=== PATIENT | male | born 1955 | race Caucasian/White ===

== ENCOUNTER → 2022-09-16 09:06 | Outpatient (CLI) | payer MEDICARE, MEDICAID, SELFPAY ==
--- NOTE | ~2022-09-16 | XR_ITS ---
AP and lateral views of the bilateral hips Clinical history: Pain Findings: No acute fracture or dislocation is seen. Osseous alignment is anatomic. Bilateral hip and SI joint spaces are preserved. Soft tissues are unremarkable. Impression: No significant abnormality is seen. Reviewed, dictated and finalized at location . Impression: No significant abnormality is seen.
--- NOTE | ~2022-09-16 | XR_ITS ---
EXAMINATION: XR lumbar spine min 4V DATE: 09/16/2022 09:37 INDICATION: Low back pain, unspecified. TECHNIQUE: 5 views of lumbar spine were obtained. COMPARISON: None. FINDINGS: Bone alignment is normal. There is mild chronic anterior wedging of T10 and T11 vertebral b odies. There is moderately decreased disc height at L4-L5 and L5-S1. There are bridging endplate oste ophytes at multiple levels from the thoracic spine to L1, consistent with diffuse idiopathic skeletal hyperostosis (DISH). There is severe facet joint osteoarthritis in lower lumbar spine. IMPRESSION: 1. Moderate lower lumbar spondylosis. 2. DISH. Reviewed, dictated and finalized at location A.
== END ==
PROVIDERS: PCP Family Medicine; Visit Provider Nurse Practitioner Family
DX: M25.551 Pain in right hip (principal); M54.50 Low back pain, unspecified; M47.816 Spondylosis without myelopathy or radiculopathy, lumbar region; M48.16 Ankylosing hyperostosis [Forestier], lumbar region
CPT/HCPCS: 72110; 73521

== ENCOUNTER 2024-02-22 14:01 | Emergency (ER) | payer MEDICARE, MEDICAID, SELFPAY ==
--- NOTE | ~2024-02-22 | XR_ITS ---
EXAMINATION: XR knee RT min 4V DATE: 02/22/2024 14:43 INDICATION: Right knee pain TECHNIQUE: Anteroposterior, 2 oblique and crosstable lateral views of the right knee were obtained COMPARISON: None. FINDINGS: Alignment is normal. No fracture. Joint spaces appear normal on nonweightbearing imaging with no ero sions or osteophytosis. Small enthesophyte at the patellar insertion of the distal quadriceps tendon. No joint effusion. Soft tissues are unremarkable. IMPRESSION: 1. Small enthesophytes at the distal quadriceps tendon. Otherwise unremarkable right knee radiographs . Reviewed, dictated and finalized at location B. IMPRESSION: 1. Small enthesophytes at the distal quadriceps tendon. Otherwise unremarkable right knee radiographs.
[2024-02-22 14:16] VITALS: BP 142/72; PULSE 118; RESP 18; TEMP 36.3; O2SAT 97
--- NOTE | 2024-02-22 14:21 | ED.EXTPRO ---
HPI - Extremity Problem General Chief complaint: Extremity Problem,Nontraumatic Stated complaint: RT Knee Pain Time Seen by Provider: 02/22/24 14:21 Source: patient, RN notes reviewed and old records reviewed Mode of arrival: ambulatory Limitations: no limitations History of Present Illness HPI Narrative: patient presents with complaints of right knee pain for approximately 2 months. He denies any a right injury or trauma. He reports that pain is worse after he has been engaging in any activity, including walking. He reports that symptoms subside with rest. He has not been taking any medication for his symptoms. Elevated pulse rate is noted, patient reports that this is his average pulse. He is not in any distress. Denies any chest pain or shortness of breath Related Data Home Medications Medication Instructions Recorded Confirmed mecobalamin (vitamin B12) 1,000 1,000 mcg PO BID 03/15/22 09/28/23 mcg chewable tablet Allergies Allergy/AdvReac Type Severity Reaction Status Date / Time No Known Allergies Allergy Verified 02/22/24 14:24 Review of Systems Review of Systems: All systems reviewed & are unremarkable except as noted in HPI and below Constitutional: Constitutional: Reports no additional constitutional complaints ENT: Reports system reviewed and no additional complaints, except as documented Cardiovascular: Cardiovascular: Reports no additional cardiovascular complaints Respiratory: Respiratory: Reports no additional respiratory complaints Gastrointestinal: Gastrointestinal: Reports no additional gastrointestinal complaints Musculoskeletal: Musculoskeletal: Reports no additional musculoskeletal complaints, Reports as per HPI and Reports arthralgias PMFSH Past Medical History Medical History Acquired hammer toe deformity of lesser toe of both feet B12 deficiency Bilateral hip pain BMI 38.0-38.9,adult BMI 39.0-39.9,adult BMI 39.0-39.9,adult BPH (benign prostatic hyperplasia) Diabetes DM type 2 with diabetic peripheral neuropathy Elevated TSH Family history of Alzheimer's disease H/O pyloric stenosis Hyperlipidemia Hyperlipidemia Hypertension intermediate (current) use of oral hypoglycemic drugs Low back pain Memory changes Nail fungus mycotic changes of all the toenails of both feet Neuropathy Nonproliferative diabetic retinopathy of both eyes (~08/10/21) exam 08/22/22 Obesity (BMI 30-39.9) Prostate cancer Rash and other nonspecific skin eruption Smokeless tobacco use Family History Family History Mother Hypertension Grandparent Hypertension Social History Social History Smoking status: Never smoker Tobacco type: smokeless tobacco Smokeless tobacco user: chewing tobacco Alcohol intake: current Alcohol use details: rarely Substance use: never Substance use type: does not use Lack of Transportation: No Lack of Food: Never True Current Housing: I Have Housing Concerned About Future Housing: No Difficulty Paying Gas/Electric Bills: No Difficulty Paying for Meds: No Currently Unemployed: No Education: High School Diploma/GED Difficulty w/ Childcare or Family Care: No Comments At the time of my signature, I reviewed and agree with the nursing past medical, surgical, social, and family history. There is no relevant family history pertinent to the patient complaint. Exam Const: General: cooperative, no acute distress, alert and awake Orientation/consciousness: oriented to person, oriented to place and oriented to time HENMT: Head: normal to inspection Resp: Effort & Inspection: normal respiratory effort and able to speak in complete sentences Auscultation: clear to auscultation bilaterally, no crackles, no rales, no rhonchi and no wheezes Cardio: Palpation: normal PMI Rate: regular rate and tachycardic Rhythm: regular rhythm He
[2024-02-22 14:26] VITALS: BP 142/72; PULSE 118; RESP 18; TEMP 36.3; O2SAT 97
== END 2024-02-22 15:03 | disposition home or self-care (01) ==
PROVIDERS: Emergency Provider Nurse Practitioner Family; PCP Family Medicine
DX: M25.561 Pain in right knee (principal); F17.220 Nicotine dependence, chewing tobacco, uncomplicated; N40.0 Benign prostatic hyperplasia without lower urinary tract symptoms; E11.42 Type 2 diabetes mellitus with diabetic polyneuropathy; E11.3293 Type 2 diabetes mellitus with mild nonproliferative diabetic retinopathy without macular edema, bilateral; E78.5 Hyperlipidemia, unspecified; I10 Essential (primary) hypertension; E66.9 Obesity, unspecified; Z68.37 Body mass index [BMI] 37.0-37.9, adult; Z85.46 Personal history of malignant neoplasm of prostate
CPT/HCPCS: 73564; 99213; G0463

== ENCOUNTER 2024-05-10 08:56 | Outpatient (CLI) | payer MEDICARE, SELFPAY ==
--- NOTE | 2024-05-10 08:59 | EST_ITS ---
Patient Info Name: Alonso Zuniga Age: 69 years : 1955 Gender: Male Ht: 69 in Wt: 255 lbs BSA: 2.42 m2 Exam Date: 05/10/2024 9:15 AM Exam Location: [facility] Patient Status: Outpatient Admit Date: 05/10/2024 Staff Ordering Physician: Shana Mireles NP Attending Provider: Shana Mireles NP Exercise Technologist: Promise Mcarthur RDCS Exercise Physician: Pedro Goodwin DO Exam Type: CA stress test treadmill Study Info A treadmill exercise stress test was performed. Summary 1. 1. Negative Alexandre exercise stress test for ischemic ST changes by ECG criteria. 2. 2. Reduced functional capacity, achieving 4.7 METs of workload. 3. 3. Baseline hypertension. 4. 4. Appropriate HR response to exercise. 5. 5. Appropriate HR recovery at 1 minute post exercise. 6. 6. No imaging with stress testing. 7. 7. Patient informed of the above results. Protocol: Alexandre Stress ECG Details Stage: REST Duration (min): 0 min : 57 sec Speed (mph): 0.0 Grade (%): 0 HR (bpm): 61 SBP (mmHg): 146 DBP (mmHg): 82 METS: --- Stage: REST Duration (min): 3 min : 58 sec Speed (mph): 0.0 Grade (%): 0 HR (bpm): 60 SBP (mmHg): 146 DBP (mmHg): 82 METS: --- Stage: STAGE 1 Duration (min): 1 min : 0 sec Speed (mph): 1.7 Grade (%): 10 HR (bpm): 84 SBP (mmHg): 146 DBP (mmHg): 82 METS: --- Stage: STAGE 1 Duration (min): 2 min : 0 sec Speed (mph): 1.7 Grade (%): 10 HR (bpm): 109 SBP (mmHg): 146 DBP (mmHg): 82 METS: --- Stage: STAGE 1 Duration (min): 3 min : 0 sec Speed (mph): 1.7 Grade (%): 10 HR (bpm): 120 SBP (mmHg): 146 DBP (mmHg): 82 METS: --- Stage: STAGE 2 Duration (min): 0 min : 7 sec Speed (mph): 2.5 Grade (%): 12 HR (bpm): 121 SBP (mmHg): 146 DBP (mmHg): 82 METS: --- Stage: RECOVERY Duration (min): 0 min : 52 sec Speed (mph): 0.0 Grade (%): 0 HR (bpm): 112 SBP (mmHg): 188 DBP (mmHg): 63 METS: --- Stage: RECOVERY Duration (min): 1 min : 52 sec Speed (mph): 0.0 Grade (%): 0 HR (bpm): 105 SBP (mmHg): 188 DBP (mmHg): 63 METS: --- Stage: RECOVERY Duration (min): 2 min : 52 sec Speed (mph): 0.0 Grade (%): 0 HR (bpm): 97 SBP (mmHg): 187 DBP (mmHg): 78 METS: --- Stage: RECOVERY Duration (min): 3 min : 52 sec Speed (mph): 0.0 Grade (%): 0 HR (bpm): 92 SBP (mmHg): 187 DBP (mmHg): 78 METS: --- Stage: RECOVERY Duration (min): 4 min : 52 sec Speed (mph): 0.0 Grade (%): 0 HR (bpm): 88 SBP (mmHg): 200 DBP (mmHg): 80 METS: --- Stage: RECOVERY Duration (min): 5 min : 52 sec Speed (mph): 0.0 Grade (%): 0 HR (bpm): 80 SBP (mmHg): 200 DBP (mmHg): 80 METS: --- Stage: RECOVERY Duration (min): 6 min : 52 sec Speed (mph): 0.0 Grade (%): 0 HR (bpm): 78 SBP (mmHg): 188 DBP (mmHg): 80 METS: --- Stage: RECOVERY Duration (min): 7 min : 52 sec Speed (mph): 0.0 Grade (%): 0 HR (bpm): 76 SBP (mmHg): 188 DBP (mmHg): 80 METS: --- Stage: RECOVERY Duration (min): 8 min : 52 sec Speed (mph): 0.0 Grade (%): 0 HR (bpm): 74 SBP (mmHg): 188 DBP (mmHg): 80 METS: --- Stage: RECOVERY Duration (min): 9 min : 52 sec Speed (mph): 0.0 Grade (%): 0 HR (bpm): 70 SBP (mmHg): 177 DBP (mmHg): 76 METS: --- Stage: RECOVERY Duration (min): 10 min : 52 sec Speed (mph): 0.0 Grade (%): 0 HR (bpm): 68 SBP (mmHg): 165 DBP (mmHg): 76 METS: --- Stage: RECOVERY Duration (min): 10 min : 57 sec Speed (mph): 0.0 Grade (%): 0 HR (bpm): 68 SBP (mmHg): 165 DBP (mmHg): 76 METS: --- Rest HR: 60 bpm Peak HR: 144 bpm Rest Sys BP: 146 mmHg Peak Sys BP: 200 mmHg Max Pred HR: 150 bpm % Max Pred HR: 96 % Target HR: 128 bpm Max RPP: 28,800 bpm*mmHg Roman Score: -12 Termination Reason: Reached target heart rate or workload Cardiac Symptoms: Shortness of breath Max ST Seg Deviation: -3.10 mm Total Time: 3 min : 7 sec Rest Corbett BP: 82 mmHg Peak Corbett BP: 80 mmHg Angina Score: None Total METS: 4.7 Resting ECG Sinus rhythm. Stress ECG No ST changes. Arrhythmias None. Report Signatures
--- NOTE | 2024-05-10 09:00 | ECG_ITS ---
Test Date: 2024-05-10 09:46:45 Measurements Intervals [place] Rate: 69 P: -87 TN: 128 QRS: -17 QRSD: 104 T: 53 QT: 387 QTc: 417 Interpretive Statements ECTOPIC ATRIAL RHYTHM LOW QRS VOLTAGE IN PRECORDIAL LEADS [QRS DEFLECTION < 1.0 mV IN CHEST LEADS] ANTEROSEPTAL MYOCARDIAL INFARCTION , OF INDETERMINATE AGE [40+ ms Q WAVE IN V1-V4] No previous ECG available for comparison Electronically Signed On 05-10-2024 12:53:06 CNC SUPERVISOR by Cecilia Jeffries M.D.
== END 2024-05-10 08:57 | disposition home or self-care (01) ==
LOC: ANHCARD 08:57
PROVIDERS: PCP Family Medicine; Visit Provider Nurse Practitioner Family
DX: I10 Essential (primary) hypertension (principal); R06.02 Shortness of breath
CPT/HCPCS: 93005; 93017

== ENCOUNTER → 2025-04-17 13:45 | Outpatient (CLI) | payer MEDICARE, SELFPAY ==
--- NOTE | ~2025-04-17 | XR_ITS ---
EXAMINATION: XR hip RT min 2V, 04/17/2025 13:47 MUSIC LEADER HISTORY: M25.551 - Pain in right hip COMPARISON: No comparisons available. Findings: No acute fracture or malalignment. No significant degenerative changes. Soft tissues unremarkable. Impression: No acute fracture or malalignment. Reviewed, dictated and finalized at location P. C LEADER Impression: No acute fracture or malalignment.
--- OUTSIDE RECORDS SUMMARY | 2025-04-17 14:21 | XMS_ITS | Clinical Summary ---
Author Organization 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 Gender Identity Not on file Sexual Orientation Not on file Plan of Treatment Health Maintenance Due Date Last Done Comments Hepatitis C Virus (HCV) Screening 1955 TdaP Immunization 1955 Cologuard 1999 Colonoscopy 1999 Colorectal Cancer Screening 1999 Immunochemical Fecal Occult Blood 1999 Pneumococcal Immunization (5 0+ years) (1 of 1 - PCV) 2004 Zoster Immunization (1 of 2) 2004 Influenza Immunization (#1) 2025 02/26/2020 SARS-COV-2 Immunization ( season) 2025 06/09/2021, 08/10/2020 Respiratory Syncytial Virus (RSV) Immunization (Adult) (1 - 1-dose 75+ series) 2029 Hepatitis B Immunization Aged Out No longer eligible based on patient's age to complete this topic Human Papillomavirus (HPV) Immunization Aged Out No longer eligible b ased on patient's age to complete this topic Meningococcal Immunization (ACWY) Aged Out No longer eligible b ased on patient's age to complete this topic Rotavirus Immunization Aged Out No lo nger eligible based on patient's age to complete this topic
--- OUTSIDE RECORDS SUMMARY | 2025-04-17 14:21 | XMS_ITS | Clinical Summary ---
Author Organization [facility] Address [address] [place] [id number] Care Team Providers Care Customer Care Representative Name Role Phone Unavailable Primary Care Provider Unavailabl e Social History Tobacco Use Types Packs/Day Years Used Date Smoking Tobacco: Never Assessed Sex and Gender Information Value Date Recorded Sex Assigned at Not on file Legal Sex Male 11:16 PM CDT Gender Identity Not on file Sexual Orientation Not on file Last Filed Vital Signs Vital Sign Reading Time Taken Comments Blood Pressure 176/106 08/20/2009 10:50 AM CDT Pulse 84 08/20/2009 10:50 AM CDT Temperature - - Respiratory Rate - - Oxygen Saturation - - Inhaled Oxygen Concentration - - Weight 118.4 kg (261 lb) 08/20/2009 10:50 AM CDT Height 175.3 cm (5' 9) 08/20/2009 10:50 AM CDT Body Mass Index 38.54 08/20/2009 10:50 AM CDT Plan of Treatment Health Maintenance Due Date Last Done Comments Colorectal Cancer Screening Colonoscopy (10 Years) 1955 Hepatitis C 1972 DTaP, Tdap and Td Vaccines ( 1 - Tdap) 1973 Pneumococcal Vaccine: 50+ Ye ars (1 of 1 - PCV) 2004 Zoster Vaccines (1 of 2) 2004 COVID-19 Vaccine ( - 2024-2 6 season) 2025 Influenza Adult (#1) 2025 RSV Immunization or 60+ Years (1 - 1-dose 75+ series) 2029 Hepatitis A Vaccines Aged Out No long er eligible based on patient's age to complete this topic Meningococcal B Vaccine Aged Out No l onger eligible based on patient's age to complete this topic Meningococcal Vaccine Aged Out No ria julio eligible based on patient's age to complete this topic RSV Immunizations Under 20 Months Aged Out No longer eligible based on patient's age to complete this topic
--- OUTSIDE RECORDS SUMMARY | 2025-04-17 14:21 | XMS_ITS | Clinical Summary ---
Author Organization [facility] [employer] Address [address] [place] [address] Care Team Providers Care Graphic Arts Instructor Name Role Phone Shana Mireles Pamela EL-GATE TENDER Primary Care Provider Source Comments [facility] [employer],non-owned Affiliates and Associated Physician Practices is amultiple site organization consisting of ambulatory clinics and hospital sitesin [place], [place], [place] and [place]. This disclosure is being madepursuant to the Care Everywhere program and may not contain all information available regarding this patient. Last updated 18.[facility] [employer] Allergies No known active allergies Medications * This document contains information received from the source organization and may not represent a complete record from that organization. * Be aware that medications may not be up to date on this document. Alwaysverify current medications with the patient. glimepiride (AMARYL) 2 MG tablet TK 1 T PO QD 0 Active irbesartan (AVAPRO) 150 MG tablet TK 1 T PO QD 0 Active metFORMIN (GLUCOPHAGE) 850 MG tablet TK 1 T PO BID WITH THE MORNING AND STEVEN MEAL 0 Active simvastatin (ZOCOR) 40 MG tablet Take 1 (one) tablet by mouth once daily 2 Active oxyBUTYnin CR 24hr (Ditropan-XL) 10 MG tablet TAKE 1 TABLET BY MOUTH EVERY DAY 90 tablet 4 3 Active DULoxetine (Cymbalta) 60 MG capsule Take 1 (one) capsule by mouth once daily 4 Active Cyanocobalamin (B-12) 1000 MCG TABS Take 1 tablet by mouth 2 times daily Active gabapentin (Neurontin) 300 MG capsule Take 1 (one) capsule by mouth 2 times daily Active diclofenac sodium (Voltaren) 1 % gel Apply 2 (two) g to affected area 4 times daily Active B Hfbbkjq-S-Sxlsn Acid (vitamin B complex with C) Take 1 (one) tablet by mouth once daily Active dapagliflozin propanediol (Farxiga) 5 MG tablet Take 1 (one) tablet by mouth every morning Active Immunizations Immunization Administration Dates Next Due INFLUENZA VACCINE 02/26/2020 Social History Tobacco Use Types Packs/Day Years Used Date Smoking Tobacco: Former Smokeless Tobacco: Current Chew Tobacco Cessation:Ready to Q uit: Not Asked; Counseling Given: Not Answered Alcohol Use Standard Drinks/Week Comments Yes 0 (1 standard drink = 0.6 oz pur e alcohol) occassionally AUDIT-C Answer Date Recorded Q1: How often do you have a drink containing alc ohol? 2-4 times a month 04/17/2020 Average Number of Drinks Not on file 020 Frequency of Binge Drinking Not on file 04/05 PHQ-2 Answer Date Recorded PHQ2 TOTAL SCORE 0 10/28/2022 Sex and Gender Information Value Date Recorded Sex Assigned at Not on file Legal Sex Male 6:11 AM CDT Gender Identity Not on file Sexual Orientation Not on file Last Filed Vital Signs Vital Sign Reading Time Taken Comments Blood Pressure 122/66 01/09/2025 9:56 AM CDT Pulse 58 01/09/2025 9:56 AM CDT Temperature 36.2 C (97.2 F) 01/09/2025 9:56 AM CDT Respiratory Rate 18 01/09/2025 9:56 AM CDT Oxygen Saturation 99% 01/09/2025 9:56 AM CDT Inhaled Oxygen Concentration - - Weight 116.6 kg (257 lb) 01/09/2025 9:56 AM CDT Height 175.3 cm (5' 9) 12/23/2022 10:22 AM CDT Body Mass Index 37.95 12/23/2022 10:22 AM CDT Plan of Treatment Upcoming Encounters Date Type Department Care Team (Late st Contact Info) Description 07/15/2025 10:00 AM ART GALLERY DIRECTOR Appointment [facility] [address] [place] [address] Sissy Ramachandran MD [address] [place] [address] Health Maintenance Due Date Last Done Comments COLON MONITORING 1955 COLONOSCOPY - COLON CA SCREENING [address] CT COLONOGRAPHY - COLON CA SCREENING 1955 FIT - COLON CA SCREENING 1955 FLEX SIG - COLON CA SCREENING 1955 HEPATITIS C SCREENING 04/29/1972 DTAP/TDAP/TD VACCINES (1 - Tdap) 1973 PNEUMOCOCCAL VACCINE 50+ (1 of 1 - PCV) 2004 ZOSTER VACCINE (1 of 2) 2004 Respiratory Syncytial Virus (RSV) Vaccine Pt: or over 60 yrs (1 - Risk 60-74 years 1-dose series) 2014 AAA SCREENING 2019 DEPRESSION SCREENING 06/05/2024 10/17/2022 MEDICARE AWV CALENDAR YEAR 2024 COVID-19 VACCINE (2 - 2024-2 6 season) 2025 06/09/2021 INFLUENZA VACCINE (#1) 2025 02/26/2020 COLOGUARD (AGES 45-75) - COL ON CA SCREENING 04/18/2027 04/18/2024 Colorectal Cancer Screening 04/18/2027 HEPATITIS B VACCINE Aged Out No longe r eligible based on patient's age to complete this topic HIB VACCINE Aged Out No longer eligi ble based on patient's age to complete this topic HPV VACCINE Aged Out No longer eligi ble based on patient's age to complete this topic MENINGOCOCCAL (Group B) VACC INE SHARED DECISION-MAKING Aged Out No longer eligibl e based on patient's age to complete this topic MENINGOCOCCAL GROUPS A/C/Y/W VACCINE Aged Out No longer eligible b ased on patient's age to complete this topic Insurance MEDICAID - [facility] Care Teams Graphic Arts Instructor Relationship Specialty Start Date End Date Shana Mireles, MANAGER INPATIENT-GATE TENDER [address] [id number] PCP - General 05/20/22
== END ==
PROVIDERS: PCP Nurse Practitioner Family; Visit Provider Nurse Practitioner Family
DX: M25.551 Pain in right hip (principal)
CPT/HCPCS: 73502